=== PATIENT | male | born 1995 | race Caucasian/White ===

== ENCOUNTER 2019-02-01 23:01 | Day surgery (SDC) | payer OTHER ==
[2019-02-01 23:29] LABS: BILIRUBIN,URINE NEGATIVE (NEGATIVE); GLUCOSE, URINE (UA) NEGATIVE (NEGATIVE); KETONES,URINE (UA) NEGATIVE (NEGATIVE); LEUKOCYTE ESTERASE, URINE NEGATIVE (NEGATIVE); NITRITE,URINE NEGATIVE (NEGATIVE); OCCULT BLOOD,URINE NEGATIVE (NEGATIVE); PROTEIN,URINE NEGATIVE (NEGATIVE); UROBILINOGEN,URINE 0.2 (NORMAL) E.U./dL (NORMAL)
[2019-02-01 23:32] LABS: CLARITY,URINE CLEAR (CLEAR)
[2019-02-02 00:23] LABS: BASOPHILS # (AUTO) 0.1 10^3/uL (0.0-0.1); EOSINOPHILS # (AUTO) 0.2 10^3/uL (0.0-0.7); EOSINOPHILS % (AUTO) 1.2 %; HGB - HEMOGLOBIN 15.1 g/dL (14.0-18.0); LYMPHOCYTES # (AUTO) 2.2 10^3/uL (1.5-3.5); LYMPHOCYTES % (AUTO) 15.3 %; MEAN CORPUSCULAR HEMOGLOBIN 27.3 pg (27.0-31.0); MEAN CORPUSCULAR HGB CONC 33.6 g/dL (32.0-36.0); MEAN CORPUSCULAR VOLUME 81.5 fL (80.0-94.0); MEAN PLATELET VOLUME 7.2 fL (7.4-11.4); MONOCYTES # (AUTO) 0.6 10^3/uL (0.0-1.0); MONOCYTES % (AUTO) 4.3 %; NEUTROPHILS # (AUTO) 11.5 10^3/uL (1.5-6.6); NEUTROPHILS % (AUTO) 78.2 %; PLT - PLATELET COUNT 285 10^3/uL (130-450); RED BLOOD COUNT 5.52 10^6/uL (4.70-6.10); RED CELL DISTRIBUTION WIDTH 12.5 % (12.0-15.0); WHITE BLOOD COUNT 14.7 x10^3/uL (4.8-10.8)
[2019-02-02 00:33] LABS: ALBUMIN 4.5 g/dL (3.2-5.5); ALBUMIN/GLOBULIN RATIO 1.3 (1.0-2.2); BILIRUBIN,TOTAL 0.5 mg/dL (0.2-1.0); CALCIUM 9.6 mg/dL (8.5-10.3); CREATININE 1.2 mg/dL (0.6-1.2); TOTAL PROTEIN 7.9 g/dL (6.7-8.2)
[2019-02-02] MEDS ORDERED: IOVERSOL 320 100 ML VIAL IVP ONE ×3 (00:43→07:01)
--- NOTE | 2019-02-02 01:16 | CT Report ---
Reason: RLQ pain Procedure Date: 02/02/2019 Accession Number: [id number] / [id number] Procedure: CT - Abdomen/Pelvis W CPT Code: FULL RESULT: EXAM: CT ABDOMEN AND PELVIS EXAM DATE: 02/02/2019 01:01 AM. CLINICAL HISTORY: RLQ pain. COMPARISONS: None. TECHNIQUE: Routine helical CT imaging was performed through the abdomen and pelvis. IV contrast: OPTI 320 90ML. Enteric contrast: No. Reconstructions: Coronal and sagittal. In accordance with CT protocol optimization, one or more of the following dose reduction techniques were utilized for this exam: automated exposure control, adjustment of mA and/or KV based on patient size, or use of iterative reconstructive technique. FINDINGS: ABDOMEN: Lung Bases: Incompletely included lower lungs are grossly clear. Heart size is within normal limits. No basilar effusions. Liver: Unremarkable. Spleen: Unremarkable. Pancreas: Unremarkable. Gallbladder/Bile Ducts: Gallbladder is unremarkable. Biliary tree is normal caliber. Adrenal Glands: Unremarkable. Kidneys: No mass, calculi, or hydronephrosis. Peritoneum/Mesentery/Bowel: No free fluid, free air, or collection. No intestinal obstruction or inflammation. Calcified appendicolith at the origin of a dilated fluid-filled inflamed appendix measuring up to 19 mm in diameter. Moderate surrounding inflammatory change. Lymph nodes: No mesenteric, periportal, or retroperitoneal lymphadenopathy. Vasculature: Abdominal aorta is nonaneurysmal. Portal vein is patent. Hepatic veins are patent. PELVIS: The bladder is unremarkable for the degree of distention. Prostate is present. No pelvic lymphadenopathy. Bones: No suspicious osseous lesions. IMPRESSION: Acute appendicitis. No free air or abscess. RADIA
--- NOTE | 2019-02-02 01:22 | ED Physician Documentation ---
PD HPI ABD PAIN - Stated complaint Stated Complaint: ABD PAIN - Chief complaint Chief Complaint: Abd Pain - History obtained from History obtained from: Patient - History of Present Illness Timing - onset: How many days ago (2) Timing - duration: Days Timing - details: Gradual onset, Still present Quality: Sharp, Pain Location: RLQ Improved by: Laying still Worsened by: Eating, Moving, Breathing, Position, Palpation Associated symptoms: Fever, Nausea, Vomiting Similar symptoms before: Has not had sx before Recently seen: Not recently seen - Additional information Additional information: 23-year-old male began to have some pain in the right lower quadrant 2 days ago in the morning this progressed throughout the day and yesterday he was able to eat only a scant amount today his pain is worse and he is unable to move around without significant pain. If he is laying very still his pain is tolerable. Review of Systems Constitutional: reports: Fever Eyes: denies: Decreased vision Ears: denies: Ear pain Nose: denies: Rhinorrhea / runny nose, Congestion Throat: denies: Sore throat Cardiac: denies: Chest pain / pressure, Palpitations Respiratory: denies: Dyspnea, Cough GI: reports: Abdominal Pain, Nausea, Vomiting : denies: Dysuria, Frequency Skin: denies: Rash Musculoskeletal: denies: Neck pain, Back pain, Extremity pain PD PAST MEDICAL HISTORY - Past Medical History Past Medical History: No - Past Surgical History Past Surgical History: Yes General: Other - Allergies Allergies/Adverse Reactions: Allergies Allergy/AdvReac Type Severity Reaction Status Date / Time No Known Drug Allergies Allergy Verified 02/01/19 23:13 - Social History Does the pt smoke?: Yes Smoking Status: Current some day smoker Does the pt drink ETOH?: Yes Does the pt have substance abuse?: No PD ED PE NORMAL - Vitals Vital signs reviewed: Yes (hypertensive ) - General General: Alert and oriented X 3, No acute distress, Well developed/nourished - HEENT HEENT: Atraumatic, PERRL, EOMI, Ears normal, Pharynx benign, Dentition benign - Neck Neck: Supple, no meningeal sign, No bony TTP - Cardiac Cardiac: RRR, No murmur - Respiratory Respiratory: No respiratory distress, Clear bilaterally - Abdomen Abdomen: Soft, Other (RLQ tenderness to palpation is well localized without referred tenderness. There is no RUQ tenderness and the remainder of the abdomen is benign. ) - Back Back: No CVA TTP, No spinal TTP - Derm Derm: Normal color, Warm and dry, No rash - Extremities Extremities: No deformity, No edema - Neuro Neuro: Alert and oriented X 3, analytical sciences director 2-12 intact, No motor deficit, No sensory deficit, Normal speech Eye Opening: Spontaneous Motor: Obeys Commands Verbal: Oriented GCS Score: 15 - Psych Psych: Normal mood, Normal affect Results - Vitals Vitals: Vital Signs - 24 hr 02/01/19 23:11 Temperature 37.4 C Heart Rate 94 Respiratory 17 Rate Blood Pressure 140/87 H O2 Saturation 98 Oxygen O2 Source Room air - Labs Labs: Laboratory Tests 02/01/19 02/01/19 02/01/19 23:20 23:59 23:59 WBC 14.7 H RBC 5.52 Hgb 15.1 Hct 45.0 MCV 81.5 MCH 27.3 MCHC 33.6 RDW 12.5 Plt Count 285 MPV 7.2 L Neut # (Auto) 11.5 H Lymph # (Auto) 2.2 [place] # (Auto) 0.6 Eos # (Auto) 0.2 Baso # (Auto) 0.1 Absolute Nucleated RBC 0.00 Nucleated RBC % 0.0 Sodium 139 Potassium 3.8 Chloride 102 Carbon Dioxide 27 Anion Gap 10.0 BUN 12 Creatinine 1.2 Estimated GFR (MDRD) 74 L Glucose 109 H Calcium 9.6 Total Bilirubin 0.5 AST 22 ALT 27 Alkaline Phosphatase 85 Total Protein 7.9 Albumin 4.5 Globulin 3.4 Albumin/Globulin Ratio 1.3 Lipase 31 Urine Color YELLOW Urine Clarity CLEAR Urine pH 7.0 Ur Specific [place] 1.015 Urine Protein NEGATIVE Urine Glucose (UA) NEGATIVE Urine Ketones NEGATIVE Urine Occult Blood NEGATIVE Urine Nitrite NEGATIVE Urine Bilirubin NEGATIVE Urine Urobilinogen 0.2 (NORMAL) Ur Leukocyte Esterase NEGATIVE Ur Microscopic Review NOT INDICATED Urine Culture Comments NOT INDICATED - Rads (name of study) CT abdomen/pel with Radiology: Prelim report reviewed (Impression: Acute appendicitis. No free air or abscess.), EMP read indepedently, See rad report PD MEDICAL DECISION MAKING - ED course Complexity details: reviewed results, re-evaluated patient, considered differential, d/w patient ED course: 23-year-old male with abdominal pain for 2 days has acute appendicitis on CT exam. Departure - Departure Disposition: ED Transfer to [facility] Clinical Impression: Appendicitis Qualifiers: Appendicitis type: acute appendicitis Acute appendicitis type: with localized peritonitis Appendicitis gangrene presence: without gangrene Appendicitis perforation presence: without perforation Appendicitis abscess presence: without abscess Qualified Code(s): K35.30 - Acute appendicitis with localized peritonitis, without perforation or gangrene Condition: Stable
[2019-02-02] MEDS ORDERED: cefOXitin 1 GM in SODIUM CHLORIDE 0.9% MINIBAG 100 ML IV STA (01:29)
[2019-02-02] MEDS ORDERED: LORazepam 2 MG/ML VIAL IVP STA (02:24)
[2019-02-02] MEDS ORDERED: BUPIVACAINE 0.25%-EPI 1:200000 PF 30 ML VIAL ONE (08:02)
--- NOTE | 2019-02-02 08:18 | ANESTHESIA ---
Pre-Anesthesia VS, & Labs - Diagnosis appendicitis - Procedure Laparoscopic appendectomy Vital Signs: Temp Pulse Resp BP Pulse Ox 37.1 C 75 16 115/81 H 99 02/02/19 01:51 02/02/19 06:00 02/02/19 06:00 02/02/19 06:00 02/02/19 06:00 Height 6 ft 3 in Weight (kg) 122.47 kg Body Mass Index 33.7 - NPO >8 hours - Lab Results Current Lab Results: Laboratory Tests 02/01/19 23:59: Sodium 139, Potassium 3.8, Chloride 102, Carbon Dioxide 27, Anion Gap 10.0, BUN 12, Creatinine 1.2, Estimated GFR (MDRD) 74 L, Glucose 109 H , Calcium 9.6, Total Bilirubin 0.5, AST 22, ALT 27, Alkaline Phosphatase 85, Total Protein 7.9, Albumin 4.5, Globulin 3.4, Albumin/Globulin Ratio 1.3, Lipase 31 02/01/19 23:59: WBC 14.7 H, RBC 5.52, Hgb 15.1, Hct 45.0, MCV 81.5, MCH 27.3, MCHC 33.6, RDW 12.5, Plt Count 285, MPV 7.2 L, Neut # (Auto) 11.5 H, Lymph # (Auto) 2.2, [place] # (Auto) 0.6, Eos # (Auto) 0.2, Baso # (Auto) 0.1, Absolute Nucleated RBC 0.00, Nucleated RBC % 0.0 Fish Bones: 02/01/19 23:59 02/01/19 23:59 Home Medications and Allergies Allergies/Adverse Reactions: Allergies Allergy/AdvReac Type Severity Reaction Status Date / Time No Known Drug Allergies Allergy Verified 02/01/19 23:13 Anes History & Medical History - Anesthetic History Anesthesia Complications: reports: No previous complications - Medical History Cardiovascular: reports: None Gastrointestinal: reports: Other (fundoplication as child) Smoking Status: Current some day smoker - Surgical History General: Other Exam General: Alert Plan Anesthesia Type: General Consent for Procedure(s) Verified and Reviewed: Yes Code Status: Attempt Resuscitation ASA classification: 2-Mild systemic disease Is this case an emergency?: Yes
[2019-02-02] MEDS ORDERED: LACTATED RINGERS 1,000 ML IV ONE (08:31)
[2019-02-02] MEDS ORDERED: BUPIVACAINE 0.25%-EPI 1:200000 PF 10 ML VIAL SUBQ ONE ×2 (08:53)
[2019-02-02] MEDS ORDERED: cefOXitin 2 GM in SODIUM CHLORIDE 0.9% MINIBAG 100 ML IV ONE (09:00)
[2019-02-02] MEDS ORDERED: LIDOCAINE-MPF 2% 5 ML VIAL IM ONE (09:44)
[2019-02-02] MEDS ORDERED: ceFAZolin 1 GM VIAL IV ONE ×2 (09:44)
[2019-02-02] MEDS ORDERED: LIDOCAINE-MPF 1% 5 ML VIAL SUBQ ONE (09:44)
[2019-02-02] MEDS ORDERED: ONDANSETRON 4 MG/2 ML VIAL IVP ONE ×2 (09:44)
[2019-02-02] MEDS ORDERED: DEXAMETHASONE 4 MG/ML VIAL IVP ONE ×2 (09:44)
[2019-02-02] MEDS ORDERED: ROCURONIUM 50 MG/5 ML VIAL IVP ONE ×2 (09:44)
[2019-02-02] MEDS ORDERED: MIDAZOLAM 2 MG/2 ML VIAL IVP ONE ×2 (09:44)
[2019-02-02] MEDS ORDERED: KETOROLAC 30 MG/ML VIAL IVP ONE ×2 (09:44)
[2019-02-02] MEDS ORDERED: PROPOFOL 200 MG/20 ML VIAL IVP ONE ×2 (09:44)
[2019-02-02] MEDS ORDERED: ACETAMINOPHEN 1,000 MG/100 ML 100 ML IV ONE ×2 (09:44)
[2019-02-02] MEDS ORDERED: fentaNYL 100 MCG/2 ML VIAL IVP ONE ×2 (09:44)
--- NOTE | 2019-02-02 09:45 | IMMEDIATE POSTOPERATIVE NOTE ---
Immediate Postoperative Note - Procedure Note Procedure Date: 02/02/19 Pre-Op Diagnosis: appendicitis Procedure: lap appy Post-Op Diagnosis: same Primary Surgeon: malvin Anesthesia Type: General ET tube Complications: No complications Estimated Blood Loss (in cc): 15 Specimens and Cultures: appendix Plan of Care: d/c
[2019-02-02] MEDS ORDERED: HYDROcod/ACETAM 5/325 MG TABLET PO PRN (09:46)
--- NOTE | 2019-02-02 10:00 | OPERATIVE REPORT ---
DATE OF SERVICE: 02/02/2019 Physician: Edmond Lemos MD SURGEON: Edmond Lemos MD PREOPERATIVE DIAGNOSIS: Acute appendicitis. POSTOPERATIVE DIAGNOSIS: Acute appendicitis. PROCEDURE PERFORMED: Laparoscopic appendectomy. ANESTHESIA: General. INDICATIONS AND PROCEDURE: The patient is a 23-year-old man who presented overnight to the emergency room. He was found to have the signs and symptoms consistent with acute appendicitis. Plans were made to take him first thing in the morning for an appendectomy. OPERATIVE PROCEDURE IN DETAIL: The risks and benefits were explained to the patient. He agreed to the procedure. He was taken to the operating room, placed under general anesthesia and intubated. The abdomen was prepped and draped. A timeout was performed and everyone in the room agreed to the procedure. We began by making a 12 mm supraumbilical incision. We carried this down to the peritoneal cavity, inserted a Vita trocar, and secured it in place. We insufflated the abdomen to 15 mmHg. I then inserted a camera and made a general inspection of the peritoneal cavity and found a very enlarged, inflamed appendix. No sign of perforation, necrosis, or gangrene; however, and there was no sign of any purulent fluid or other abnormality inside the abdomen. Two 5 mm trocars were inserted under vision from the camera, one in the left lower quadrant of the abdomen and one above the pubic symphysis. A window was created between the appendiceal body and mesoappendix where it meets the cecum. The appendiceal body was then stapled using blue load of the JC stapler. The mesoappendix was then stapled using a white load of the JC stapler. There was residual bleeding from the appendiceal artery after stapling. Two clips were applied and the bleeding stopped completely. The right lower quadrant was then lavaged, and no residual bleeding or other abnormality was seen with staple line. The appendix was removed in an Endo Catch bag. All 3 trocars were removed under vision with the camera. The umbilical port site was closed using 0 Vicryl stitch in the fascia, and all 3 incisions were closed using 4-0 Monocryl in the skin with overlying Dermabond. Marcaine 20 mL was infused in the incisions prior to closure. This terminated the procedure. The patient was extubated in the operating room and taken to recovery in stable condition. COUNTS: The instrument and lap counts were correct. ESTIMATED BLOOD LOSS: 15 mL. COMPLICATIONS: None. SPECIMENS: Appendix. PLAN: For the patient to go home later today. TD: 02/02/2019 09:50 MTDBoby
[2019-02-02] MEDS: HYDROmorphone 1 MG/ML CARPUJECT ONE ×2 (10:03→10:15)
[2019-02-02] MEDS ORDERED: ONDANSETRON 4 MG/2 ML VIAL ONE (10:07)
[2019-02-02 10:54] VITALS: BP 143/92
== END 2019-02-02 07:01 | disposition home or self-care (01) ==
LOC: ED 23:01 → SDS 02-02 07:00
PROVIDERS: ATTEND Surgery
PROC: 0DTJ4ZZ Resection of Appendix, Percutaneous Endoscopic Approach (ICD-10-PCS; principal; 2019-02-01)
DX: K35.80 Unspecified acute appendicitis (principal); F17.200 Nicotine dependence, unspecified, uncomplicated
CPT/HCPCS: 36415; 44970; 74177; 80053; 81003; 83690; 85025; 96365; 96375; 99284; J0131; J1170; J2060; J7120; Q9967; 81001; 87086